=== PATIENT | female | born 1995 | race Hispanic/Latino ===

== ENCOUNTER 2020-05-16 00:16 | Emergency (ER) | payer OTHER ==
--- NOTE | 2020-05-16 00:20 | ED.PDOC ---
History of Present Illness - General Time Seen by Provider: 05/16/20 00:17 Source: patient, RN notes reviewed, Vital Signs reviewed, police Additional Information: 25-year-old female that presents to the ER accompanied by police for medical clearance, patient has a history of diabetes at the scene she was 222 by time she got to alf was 390, so they would not accept her until she gets medical clearance. no nausea no vomiting and no abdominal pain Patient does not appear in any distress patient admits Drinking alcohol earlier - History of Present Illness Improving Factors: nothing Worsening Factors: nothing Associated Symptoms: denies symptoms Allergies/Adverse Reactions: Allergies NO KNOWN ALLERGY Allergy (Verified 05/16/20 00:26) Home Medications: Ambulatory Orders Acyclovir 05/16/20 Human Insulin Aspart [Novolog] 100 unit SC 05/16/20 Insulin Detemir [Levemir] 0 unit SUBCU 05/16/20 Review of Systems - Review of Systems Constitutional: States: no symptoms reported EENTM: States: no symptoms reported Respiratory: States: no symptoms reported Cardiology: States: no symptoms reported Gastrointestinal/Abdominal: States: no symptoms reported Genitourinary: States: no symptoms reported Musculoskeletal: States: no symptoms reported Skin: States: no symptoms reported Neurological: States: no symptoms reported Endocrine: States: no symptoms reported Hematologic/Lymphatic: States: no symptoms reported Family Medical History - Family History Mother Sister Family History: Unknown Physical Exam - Physical Exam General Appearance: Alert, Well Developed, Well Groomed, Well Hydrated, Well Nourished Eye Exam: bilateral normal Ears, Nose, Throat: hearing grossly normal Neck: non-tender, full range of motion, supple, normal inspection Respiratory: chest non-tender, lungs clear, normal breath sounds, no respiratory distress, no accessory muscle use Cardiovascular/Chest: normal peripheral pulses, regular rate, rhythm, no edema, no gallop, no JVD Peripheral Pulses: radial,right: 2+, radial,left: 2+ Gastrointestinal/Abdominal: normal bowel sounds, non tender, soft, no organomegaly, no pulsatile mass Back Exam: normal inspection, no CVA tenderness, no vertebral tenderness Extremity: normal range of motion, non-tender, normal inspection, no pedal edema, no calf tenderness, normal capillary refill 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 I did order a chemistry that did not show any evidence of high anion gap or metabolic acidosis and patient did receive 10 units of IV regular insulin, patient will be discharged with police custody and she will be medically cleared 05/16/20 01:55 Departure - Departure Clinical Impression: Medical clearance for incarceration Diabetes mellitus Qualifiers: Diabetes mellitus type: type 1 Diabetes mellitus complication status: without complication Qualified Code(s): E10.9 - Type 1 diabetes mellitus without complications Disposition: Discharge to Home or Self Care Condition: Good Diet: diabetic diet Home Medications: Ambulatory Orders Acyclovir 05/16/20 Human Insulin Aspart [Novolog] 100 unit SC 05/16/20 Insulin Detemir [Levemir] 0 unit SUBCU 05/16/20
[2020-05-16] MEDS ORDERED: INSULIN, REG.(HUMAN) 100 U/ML VIAL IV ONE (00:24)
[2020-05-16] MEDS ORDERED: SODIUM CHLORIDE 0.9% 1000ML 1,000 ML IVS ONE (00:24)
[2020-05-16 00:30] VITALS: TEMP 97
[2020-05-16 01:07] VITALS: O2SAT 99
[2020-05-16 02:03] VITALS: BP 101/69
== END 2020-05-16 02:12 | disposition home or self-care (01) ==
LOC: ER 00:16
DX: E10.9 Type 1 diabetes mellitus without complications (principal); Z79.4 Long term (current) use of insulin
CPT/HCPCS: 80053; 82009; 82948; J7030